=== PATIENT | female | born 2000 | race Caucasian/White ===

== ENCOUNTER 2024-08-26 08:02 | Outpatient (REF) | payer OTHER, SELFPAY ==
[2024-08-26 09:22] LABS: MANUAL DIFF FLAG NO
[2024-08-26 09:29] LABS: Basophils Percent Auto 0.6 % (0-2); Eosinophils Absolute Auto 0.2 X10*3/uL (0.0-0.4); Eosinophils Percent Auto 2.3 % (0-4); Hematocrit 39.9 % (37.0-47.0); Hemoglobin 13.7 g/dl (12.0-16.0); Imm Gran Abs Auto 0.01 X10*3/uL (0.00-0.03); Imm Gran Pct Auto 0.2 % (0.0-0.4); Lymphocytes Absolute Auto 2.2 X10*3/uL (1.2-4.9); Lymphocytes Percent Auto 33.7 % (20-40); Mean Corpuscular HGB Conc 34.3 g/dl (31.0-35.0); Mean Corpuscular Hemoglobin 29.1 pg (27.0-33.0); Mean Corpuscular Volume 84.7 fL (80.0-98.0); Mean Platelet Volume 10.4 fL (9.4-12.3); Monocytes Absolute Auto 0.3 X10*3/uL (0.1-1.2); Monocytes Percent Auto 4.4 % (2-11); Neutrophils Absolute Auto 3.9 x10*3/uL (2.0-8.3); Neutrophils Percent Auto 58.8 % (45-73); Platelet Count 165 X10*3/uL (160-400); Red Blood Count 4.71 X10*6/uL (4.20-5.50); Red Cell Distribution Width 11.9 % (11.0-16.0); White Blood Count 6.6 X10*3/uL (4.8-10.8)
[2024-08-26 10:04] LABS: Alanine Aminotransferase 36 U/L (0-31); Albumin Level 4.3 g/dL (3.5-5.0); Alkaline Phosphatase 35 U/L (39-117); Anion Gap 11 (12-20); Aspartate Amino Transferase 27 U/L (5-31); Bilirubin Total 0.3 mg/dL (0.0-1.0); Blood Urea Nitrogen 9 mg/dL (9-16); Calcium 8.7 mg/dL (8.4-10.2); Carbon Dioxide 22 mmol/L (22-29); Chloride 109 mmol/L (96-108); Estimated Glomerular Filt Rate > 60; Glucose Random 85 mg/dL (60-115); Potassium 4.3 mmol/L (3.3-5.1); Sodium 138 mmol/L (135-145); Total Protein 7.5 g/dL (6.5-8.0)
[2024-08-26 10:25] LABS: Free T4 (Free Thyroxine) 0.92 ng/dL (0.71-1.85); TSH reflex Free T4 1.41 uIU/mL (0.32-4.0); Vitamin D 25-OH Total 43.7 ng/mL (>30)
[2024-08-26 10:30] LABS: Folate 15.1 ng/mL (> or = 4.0); Vitamin B12 383 pg/mL (200-900)
== END 2024-08-26 08:03 | disposition home or self-care (01) ==
LOC: HO.LAB 08:02
DX: Z00.00 Encounter for general adult medical examination without abnormal findings (principal); L71.9 Rosacea, unspecified; L30.9 Dermatitis, unspecified; Z28.21 Immunization not carried out because of patient refusal
CPT/HCPCS: 36415; 80053; 82306; 82607; 82746; 84439; 84443; 85025; 96127

== ENCOUNTER 2024-10-21 17:27 | Emergency (ER) | payer OTHER, SELFPAY ==
--- NOTE | ~2024-10-21 | US_ITS ---
CLINICAL HISTORY: pelvic pain US pelvis transabdominal and transvaginal Comparison: None Findings: Transabdominal and Transvaginal scanning performed. Anteverted uterus is 9.2 cm length. Portions of the myometrium are obscured by side of the artifacts. Endometrium is partly obscured, demonstrates nonuniformity, and measures 7 mm thickness. Fluid noted within the cervix. 3 mm nabothian cysts noted adjacent to the cervix. Right ovary 1.8 x 1.4 x 1.1 cm, and partly obscured. Left ovary 3.1 (image 62) x 1.2 x 1.0 cm. Attempted vascular imaging is suboptimal. No significant free fluid within the imaged pelvis. IMPRESSION: 1. No ultrasound findings of ovarian torsion. 2. Nonuniformity of the imaged endometrium. Consider follow-up in 6 weeks or 10 weeks. This document has been electronically signed by: Chapito Jiménez MD on 10/21/2024 19:27:38
[2024-10-21 17:52] VITALS: BP 140/83; PULSE 112; RESP 18; TEMP 36.4; O2SAT 97; BMI 20.4
--- NOTE | 2024-10-21 17:53 | ED_ITS ---
HPI - Abdominal Pain General Chief Complaint: Abdominal Pain Stated Complaint: abd pain Time Seen by Provider: 10/21/24 19:46 Source: patient Mode of arrival: ambulatory Limitations: no limitations History of Present Illness ED Provider: halie henderson NP HPI narrative: Patient is a 24-year-old female who presents emergency department for evaluation, she states that she has been having lower abdominal pain/pelvic pain over the past 2 weeks intermittent in nature described as a sharp shooting pain for alleviating. She states that today she noticed a very small amount of vaginal bleeding after urinating, she strongly believes that this was vaginal rather than blood in the urinary stream. She states that it is very atypical for her to have any breakthrough bleeding during her menstrual cycles. She states that she had a Pap smear at a [facility] a few years back and by her account there was no abnormal findings, she attempted to contact the health center today given her pain and vaginal spotting unfortunately she was not able to be seen who was advised to seek care at urgent care. States that at urgent care she had a urine test done which was normal and a negative . She is compliant with her control. Denies fevers, chills, chest pain, nausea, vomiting, hematemesis, diarrhea, constipation, hematochezia, melena, dysuria, urinary frequency, urinary urgency, urinary hesitancy, hematuria, abnormal vaginal discharge. Denies concern for sexually transmitted infection, denies painful intercourse.. Related Data Previous Rx's ?Medication ?Instructions ?Recorded norgestimate-ethinyl estradiol 1 tab PO DAILY #84 tabs 08/26/24 0.18mg/0.215mg/0.25mg-0.035mg(28)tablet (Tri-Estarylla) Allergies Allergy/AdvReac Type Severity Reaction Status Date / Time cephalexin [From Keflex] Allergy Mild Rash Verified 10/21/24 17:53 Review of Systems Review of Systems Yes all other systems are reviewed and are negative PMFSH Past Medical History Attestation statement: The following information was validated with the patient. Source: old records reviewed Medical History Molluscum contagiosum Surgical History History of wisdom tooth extraction Family History Family History Other Mental health disorder Social History Social History Housing: Apartment Alcohol intake: current Alcohol intake frequency: a few times a week Patient Tobacco Use Status: Never used Tobacco e-Cigarette/Vaping Use: Never Used Second Hand Smoke Exposure: No Advance Directives: No Advance Directives Information Provided: Yes service: No Current occupational status: employed Current occupation: [employer] Salesperson Cognitive needs: No Hearing needs: No Vision needs: No Physical Exam ED Vital Signs: Vital Signs - 24 hr 10/21/24 17:52 10/21/24 21:16 Temperature 97.5 F 97.6 F Pulse Rate 112 H 92 Respiratory Rate 18 16 Blood Pressure 140/83 H 133/78 Pulse Oximetry 97 100 Oxygen Delivery Method Room Air Room Air BMI result Body Mass Index 20.4 Appearance: Alert.?Oriented to person, place and time. No acute distress.?Normal affect.?? Neck: Normal inspection.? Neck supple.?? CVS: Heart sounds normal. Normal heart rate and rhythm.? Pulses normal.?? Respiratory: No respiratory distress.? Lung sounds clear to auscultation bilaterally?? Abdomen: Soft and non-tender. No rebound tenderness at McBurney's point. Negative psoas sign. Negative Rovsing sign. Negative Todd sign. No CVAT. Normoactive bowel sounds. No pulsatile mass.?? Skin: Skin warm and dry.? Normal skin color.? Extremities: No lower extremity edema.? Neuro: Moves all extremities spontaneously. Sensation intact bilaterally. Ambulates with normal steady gait. Course Course Course Narrative: This is an RME: Additional HPI, ROS, PE not included below will be deferred to primary provider. RME assessment and note performed by: Miriam Garzon PA-C This is a 24-year-old female who presents emergency department with complaints of pelvic pain x 2 weeks and spotting since today. Patient was seen at an urgent care and was sent in for further evaluation. She states that it is very atypical for her to have spotting throughout her cycle. No urinary symptoms. She went to an urgent care where they perform a urinalysis. Negative . She is on control. No concerns for sexually transmitted infections. She does report vaginal discharge however reports no atypical vaginal discharge Plan: Labs, UA, ultrasound, further ER evaluation needed. Medical Decision Making Medical Decision Making [facility] Narrative: Patient is a 24-year-old female with no reported past medical history who presents emergency department for evaluation of lower abdominal/pelvic pain intermittently described as a sharp shooting pain with a single episode of vaginal bleeding today. She had a workup prior to my assumption of care which revealed a CBC without leukocytosis anemia or thrombocytopenia. No significant electrolyte derangement. No SOHA. Are unremarkable LFTs. HCG is negative. Declined to have repeat urinalysis as this was done at urgent care and was without evidence of infection or blood in the urine. She had an ultrasound of the pelvis reveals non uniformity of the endometrium with recommendation for follow-up in 6-10 weeks, no evidence of torsion. Reviewed these findings with the patient, discussed potentially inflammatory in nature, endometriosis, she is amenable to having testing for chlamydia/gonorrhea, no bacterial vaginosis panel though she is entirely asymptomatic for any of these conditions. Her abdominal examination is entirely benign. She is without signs of systemic toxicity afebrile without tachycardia no hypotension. Not consistent with acute abdomen no peritoneal signs. She has no associated urinary symptoms to suggest UTI/pyelonephritis, renal colic, hydronephrosis. No associated nausea vomiting diarrhea or constipation, unlikely to be acute gastrointestinal disease. At this time feel that she is stable for discharge outpatient follow-up with OBGYN/PCP and reviewed strict return precautions. Differential Diagnosis Differential Diagnoses: The differential diagnosis associated with the presentation includes (See narrative above ) Admission/Observation Consideration of admission/observation: Escalation of care including admission/observation considered (See narrative above ) Lab Data [facility] Lab Attestation statement: I reviewed the patient's lab results. (See narrative above) 10/21/24 19:47 10/21/24 19:47 Labs: Lab Results 10/21/24 Range/Units 19:47 WBC 5.8 (4.8-10.8) X10*3/uL RBC 4.35 (4.20-5.50) X10*6/uL Hgb 13.0 (12.0-16.0) g/dl Hct 36.8 L (37.0-47.0) % MCV 84.6 (80.0-98.0) fL MCH 29.9 (27.0-33.0) pg MCHC 35.3 H (31.0-35.0) g/dl RDW 11.6 (11.0-16.0) % Plt Count 189 (160-400) X10*3/uL MPV 10.3 (9.4-12.3) fL Immature Gran % (Auto) 0.2 (0.0-0.4) % Neut % (Auto) 52.9 (45-73) % Lymph % (Auto) 40.0 (20-40) % Norton % (Auto) 5.5 (2-11) % Eos % (Auto) 0.9 (0-4) % Baso % (Auto) 0.5 (0-2) % Lymph # (Auto) 2.3 (1.2-4.9) X10*3/uL Norton # (Auto) 0.3 (0.1-1.2) X10*3/uL Eos # (Auto) 0.1 (0.0-0.4) X10*3/uL Baso # (Auto) 0.0 (0.0-0.2) X10*3/uL Abs Immat Gran (auto) 0.01 (0.00-0.03) X10*3/uL Absolute Neuts (auto) 3.1 (2.0-8.3) x10*3/uL Absolute Nucleated RBC 0.000 (0.0-0.012) X10*3/uL Nucleated RBC % (auto) 0.0 (0.0-0.2) /100WBC Sodium 138 (135-145) mmol/L Potassium 3.9 (3.3-5.1) mmol/L Chloride 110 H (96-108) mmol/L Carbon Dioxide 22 (22-29) mmol/L Anion Gap 10 L (12-20) BUN 8 L (9-16) mg/dL Creatinine 0.69 (0.5-1.4) mg/dL Estim Creat Clear Calc 115.6 Estimated GFR > 60 Random Glucose 96 (60-115) mg/dL Calcium 9.0 (8.4-10.2) mg/dL Total Bilirubin 0.3 (0.0-1.0) mg/dL Direct Bilirubin 0.1 (0.0-0.5) mg/dL AST 21 (5-31) U/L ALT 29 (0-31) U/L Alkaline Phosphatase 32 L (39-117) U/L Total Protein 7.3 (6.5-8.0) g/dL Albumin 4.4 (3.5-5.0) g/dL Beta HCG, Quant < 2 mIU/mL Radiology Impression Discussion of test interpretation with radiology: I have reviewed the radiologist's reading. Radiologist Impression: IMPRESSION: 1. No ultrasound findings of ovarian torsion. 2. Nonuniformity of the imaged endometrium. Consider follow-up in 6 weeks or 10 weeks. Independent Historian Clinical information obtained from an independent historian. History obtained from or confirmed by: Spouse and Parent Discharge Plan Discharge Clinical Impression: Abdominal pain, Abnormal ultrasound of endometrium Patient Disposition: Home, Self-Care Instructions: Abdominal Pain (ED) Additional Instructions: As discussed, additional testing results will not be available to day, if there is any positive results over the next few days you will receive a phone call from the hospital. Based on the ultrasound findings is recommended that you follow-up with OBGYN for further evaluation and treatment. You may return to emergency department any new or worsening symptoms or concerns. IMPRESSION: 1. No ultrasound findings of ovarian torsion. 2. Nonuniformity of the imaged endometrium. Consider follow-up in 6 weeks or 10 weeks. Prescriptions: No Action norgestimate-ethinyl estradiol [Tri-Estarylla] 0.18/0.215/0.25 mg-35 mcg (28) tablet 1 tab PO DAILY Qty: 84 0RF Referrals: Mitzy Mendez PA-C [Primary Care Provider] - Print Language: Greenlandic
[2024-10-21 19:52] LABS: MANUAL DIFF FLAG NO
[2024-10-21 19:53] LABS: Basophils Percent Auto 0.5 % (0-2); Eosinophils Absolute Auto 0.1 X10*3/uL (0.0-0.4); Eosinophils Percent Auto 0.9 % (0-4); Hematocrit 36.8 % (37.0-47.0); Imm Gran Abs Auto 0.01 X10*3/uL (0.00-0.03); Imm Gran Pct Auto 0.2 % (0.0-0.4); Lymphocytes Absolute Auto 2.3 X10*3/uL (1.2-4.9); Mean Corpuscular HGB Conc 35.3 g/dl (31.0-35.0); Mean Corpuscular Hemoglobin 29.9 pg (27.0-33.0); Mean Corpuscular Volume 84.6 fL (80.0-98.0); Mean Platelet Volume 10.3 fL (9.4-12.3); Monocytes Absolute Auto 0.3 X10*3/uL (0.1-1.2); Monocytes Percent Auto 5.5 % (2-11); Neutrophils Absolute Auto 3.1 x10*3/uL (2.0-8.3); Neutrophils Percent Auto 52.9 % (45-73); Platelet Count 189 X10*3/uL (160-400); Red Blood Count 4.35 X10*6/uL (4.20-5.50); Red Cell Distribution Width 11.6 % (11.0-16.0); White Blood Count 5.8 X10*3/uL (4.8-10.8)
[2024-10-21 20:15] LABS: Alanine Aminotransferase 29 U/L (0-31); Albumin Level 4.4 g/dL (3.5-5.0); Alkaline Phosphatase 32 U/L (39-117); Anion Gap 10 (12-20); Aspartate Amino Transferase 21 U/L (5-31); Bilirubin Direct 0.1 mg/dL (0.0-0.5); Bilirubin Total 0.3 mg/dL (0.0-1.0); Blood Urea Nitrogen 8 mg/dL (9-16); Carbon Dioxide 22 mmol/L (22-29); Chloride 110 mmol/L (96-108); Creatinine Clr Calc Pharmacy 115.6; Estimated Glomerular Filt Rate > 60; Glucose Random 96 mg/dL (60-115); HCG Quantitative < 2 mIU/mL; Potassium 3.9 mmol/L (3.3-5.1); Sodium 138 mmol/L (135-145); Total Protein 7.3 g/dL (6.5-8.0)
--- NOTE | 2024-10-21 20:40 | PC.NURSE ---
Patient presents with intermittent abdominal cramping for the past 2 week. States has had some spotting in between cycles which is not normal. Alert and oriented. Lungs clear bilat. Respirations even and non-labored. Abdomen sl firm, non-tender with positive bowel sounds. Positive pedal pulses with no edema. Pending provider eval.
[2024-10-21 21:16] VITALS: BP 133/78; PULSE 92; RESP 16; TEMP 36.4; O2SAT 100
[2024-10-21 22:16] VITALS: BP 133/78; PULSE 92; RESP 16; TEMP 36.4; O2SAT 100
[2024-10-22 02:16] LABS: CT PCR NOT DETECTED (Not Detect.); NG PCR NOT DETECTED (Not Detect.)
[2024-10-22 09:07] LABS: Bacterial Vaginosis PCR NEGATIVE (Negative); Candida Group PCR NOT DETECTED (Not Detect); Candida glab krusei PCR NOT DETECTED (Not Detect); Trichomonas vaginalis PCR NOT DETECTED (Not Detect)
== END 2024-10-21 22:17 | disposition home or self-care (01) ==
PROVIDERS: Nurse Practitioner Family; Physician Assistant Medical; Emergency Provider Emergency Medicine Emergency Medical Services
DX: R10.2 Pelvic and perineal pain (principal); Z11.52 Encounter for screening for COVID-19; Z79.899 Other long term (current) drug therapy
CPT/HCPCS: 36415; 76830; 76856; 80048; 80076; 81515; 84702; 85025; 87491; 87591; 99284

== ENCOUNTER → 2024-10-21 17:58 | Outpatient (BNV) | payer OTHER, SELFPAY | PROVIDERS: Visit Provider Radiology Neuroradiology | DX: R10.2 Pelvic and perineal pain (principal); N84.1 Polyp of cervix uteri | CPT/HCPCS: 76830; 76856 ==